=== PATIENT | female | born 1930 | race Two or more races ===

== ENCOUNTER 2017-07-02 17:01 | Inpatient (IN) | payer MEDICARE, OTHER ==
[~2017-07-02] VITALS: Ht 160 cm; Wt 79.4 kg
--- NOTE | 2017-07-02 17:05 | NUR ---
BB GRANDDAUGHTER: COUGH, CONGESTION, SOB, WHEEZING. PLACED ON MONITOR
[2017-07-02] MEDS ORDERED: CEFTRIAXONE 1GM BAG (ER ONLY) 50 ML IV ONE (18:00)
[2017-07-02] MEDS ORDERED: methylPREDNISolone SOD SUCC 125 MG/2ML VIAL IV ONE (18:00)
[2017-07-02] MEDS ORDERED: ALBUTEROL FS 2.5 MG/3 ML VIAL.NEB NEB ONE (18:00)
[2017-07-02] MEDS ORDERED: AZITHROMYCIN 500 MG in IV D5W 250 ML IV ONE ×2 (18:00→18:30)
[2017-07-02] MEDS ORDERED: IPRATROPIUM NEB FS 0.5 MG/2.5 ML AMPUL.NEB NEB ONE (18:00)
[2017-07-02] MEDS ORDERED: ALBUTEROL FS 2.5 MG/3 ML VIAL.NEB ONE (18:08)
[2017-07-02] MEDS ORDERED: IPRATROPIUM NEB FS 0.5 MG/2.5 ML AMPUL.NEB ONE (18:08)
--- NOTE | 2017-07-02 18:12 | NUR ---
EKG IN PROGRESS
[2017-07-02] MEDS ORDERED: methylPREDNISolone SOD SUCC 125 MG/2ML VIAL ONE (18:18)
[2017-07-02 18:20] LABS: BASOPHILS % (AUTO) 0.8 % (0.0-2.0); EOSINOPHILS # (AUTO) 0.2 /CMM (0.0-0.7); EOSINOPHILS % (AUTO) 3.2 % (0.0-6.0); HEMATOCRIT 43 % (33-45); HEMOGLOBIN 14.8 g/dL (11.5-14.8); LYMPHOCYTES # (AUTO) 2.4 /CMM (0.8-4.8); LYMPHOCYTES % (AUTO) 39.4 % (20.0-44.0); MEAN CORPUSCULAR HEMOGLOBIN 29 PG (26.0-33.0); MEAN CORPUSCULAR HGB CONC 34 g/dl (31.0-36.0); MEAN CORPUSCULAR VOLUME 85 fL (82-100); MONOCYTES # (AUTO) 0.7 /CMM (0.1-1.30); NEUTROPHILS # (AUTO) 2.8 /CMM (1.8-8.9); NEUTROPHILS % (AUTO) 44.6 % (43.0-81.0); PLATELET COUNT (AUTO) 207 /CMM (150-450); RED BLOOD CELL COUNT(AUTO) 5.09 MIL/uL (4.0-5.2); WHITE BLOOD COUNT (AUTO) 6.1 K/uL (4.3-11.0)
[2017-07-02 18:31] LABS: CARBON DIOXIDE 28 mmol/L (21-32); CHLORIDE 103 mmol/L (98-107); GLUCOSE 261 mg/dL (74-106); POTASSIUM 4.4 mmol/L (3.5-5.1); SODIUM SERUM 139 mmol/L (136-145); UREA NITROGEN, BLOOD 15 mg/dL (7-18)
[2017-07-02 18:35] LABS: INR 0.86 (0.85-1.15)
[2017-07-02 18:39] LABS: TROPONIN I < 0.017 ng/mL (0.00-0.056)
[2017-07-02 18:44] LABS: ALANINE AMINOTRANSFERASE 22 U/L (12-78); ALBUMIN 3.3 g/dL (3.4-5.0); ALKALINE PHOSPHATASE 90 U/L (46-116); ASPARTATE AMINOTRANSFERASE 17 U/L (15-37); B-TYPE NATRIURETIC PEPTIDE 111 PG/ML (0-125); BILIRUBIN,DIRECT 0.1 mg/dL (0.0-0.2); BILIRUBIN,TOTAL 0.4 mg/dL (0.2-1.0); TOTAL PROTEIN, SERUM 7.2 g/dL (6.4-8.2)
[2017-07-02] MEDS ORDERED: ESOM40CA PO (18:54)
[2017-07-02] MEDS ORDERED: FLUT1DIS5 IH (18:54)
[2017-07-02] MEDS ORDERED: SITA100T PO (18:54)
[2017-07-02] MEDS ORDERED: POTA8TAB8 PO (18:54)
[2017-07-02] MEDS ORDERED: APIX2.5T PO (18:54)
[2017-07-02] MEDS ORDERED: METF500T4 PO (18:54)
[2017-07-02] MEDS ORDERED: VALS80TA2 PO (18:54)
[2017-07-02] MEDS ORDERED: BACL10TA PO (18:54)
--- NOTE | 2017-07-02 18:56 | NUR ---
PARTIAL MED-LIST OBTAINED FROM PATIENT AND FAMILY AT BED SIDE. FAMILY WILL BRING ALL HOME MEDICATION SUPPLY TOMORROW.
--- NOTE | 2017-07-02 19:12 | NUR ---
REPORT RECEIVED FROM ZANDER KO FOR JANAE.
[2017-07-02] MEDS ORDERED: MAGNESIUM HYDROXIDE 30 ML UDC PO PRN (19:30)
[2017-07-02] MEDS ORDERED: Z GUARD REMEDY 2 OZ OINT TP PRN (19:30)
[2017-07-02] MEDS ORDERED: ACETAMINOPHEN 325 MG TABLET PO PRN (19:30)
[2017-07-02] MEDS ORDERED: TEMAZEPAM 15 MG CAPSULE PO PRN (19:30)
[2017-07-02] MEDS ORDERED: ALBUTEROL FS 2.5 MG/3 ML VIAL.NEB NEB PRN (19:30)
[2017-07-02] MEDS ORDERED: IPRATROPIUM NEB FS 0.5 MG/2.5 ML AMPUL.NEB NEB PRN (19:30)
[2017-07-02] MEDS ORDERED: HYDROCODONE/APAP 5/325MG 1 EACH TABLET PO PRN (19:30)
[2017-07-02] MEDS ORDERED: MAG HYDROX/AL HYDROX/SIMETH 30 ML UDC PO PRN (19:30)
[2017-07-02] MEDS ORDERED: ONDANSETRON HCL/PF 4 MG/2 ML VIAL IVP PRN (19:30)
--- NOTE | 2017-07-02 19:51 | NUR ---
DIAMOND ([facility]) PHONE# [phone].
--- NOTE | 2017-07-02 21:26 | NUR ---
REPORT CALLED TO ZANDER HAMMONDS FOR JANAE. PT TBA TELE [phone].
[2017-07-02 21:40] VITALS: BP 155/87
--- NOTE | 2017-07-02 21:40 | NUR ---
HEALTH INFORMATION CODER OPENING NOTES: RECEIVED PT AND IS A/OX3 LATVI[place] SPEAKING/UNDERSTANDING ONLY. PT CAN UNDERSTAND A LITTLE BIT OF [place]. PT APPLIED ON 2LPM VIA NC SHE IS SHOWING SIGNS OF HAVING SOB. PT TO BE PLACED ON TELE BOX. PT HAS IV ON R HAND #20G AND IS PATENT AND INTACT. PT IS CURRENTLY S/L. PT INSTRUCTED TO USE CALL LIGHT FOR ASSISTANCE. CALL LIGHT WITHIN PT'S REACH. BED KEPT IN LOW, LOCKED POSITION, AND SIDE RAILS X 2UP. WILL CONTINUE TO MONITOR PT.
--- NOTE | 2017-07-02 21:55 | NUR ---
PT TRANSPORTED TO [facility] 316-2 VIA STRETCHER ON FILLER MIXER WITH RN PER ACLS PROTOCOL. VSS.
[2017-07-03] VITALS (7 sets, daily range): BP systolic 101–148; BP diastolic 47–80
--- NOTE | 2017-07-03 02:47 | NUR ---
TOOL AND DIE MAKER APPRENTICE NOTES: SPOKE WITH DR. KIMANI Myrick ; INFORMED HIM THAT PT IS DIABETIC AND IS TAKING JANUVIA AND METFORMIN. ALSO GOT ORDER FOR ACCUCHECK AND MILD SLIDING SCALE INSULIN.
[2017-07-03] MEDS ORDERED: DEXTROSE 50%-WATER 50 ML DISP.SYRIN IV PRN (03:00)
[2017-07-03] MEDS: BLOOD SUGAR DIAGNOSTIC 1 EACH STRIP IN SCH ×4 (06:04→21:52)
[2017-07-03] MEDS: INSULIN REGULAR, HUMAN 100 UNIT/ML 3 ML VIAL SQ PRN ×4 (06:36→22:17)
--- NOTE | 2017-07-03 06:42 | NUR ---
TURRET PUNCH PRESS OPERATOR NOTES: BLOOD SUGAR WAS 270. 6 UNITS OF INSULIN WAS ADMINISTERED.SNACK WAS PROVIDED.
--- NOTE | 2017-07-03 07:36 | NUR ---
LIVERY CAR DRIVER CLOSING NOTES: ALL NEEDS WERE ATTENDED AND ANTICIPATED FOR. PT ON 2LPM VIA NC AND TOLERATING WELL. WALKER AT BEDSIDE. BED ALARM ACTIVATED. INSTRUCTED PT TO USE CALL LIGHT FOR ASSISTANCE. PT HAS IV AND IS PATENT AND INTACT. CURRENTLY S/L. NO S/S OF DISTRESS OR SOB. BED KEPT IN LOW, LOCKED POSITION, AND SIDE RAILS X 2UP. PT ON TELE BOX AND READING SHOWS SR WITH OCCASIONAL PVCS. ENDORSED TO AM NURSE FOR JANAE.
[2017-07-03 07:41] LABS: CHOLESTEROL 228 mg/dL (<200); HDL CHOLESTEROL 39 mg/dL (40-60); LDL 156 mg/dL (0-99); TRIGLYCERIDES 118 mg/dL (30-150)
[2017-07-03 07:45] LABS: BASOPHILS % (AUTO) 0.1 % (0.0-2.0); EOSINOPHILS % (AUTO) 0.2 % (0.0-6.0); HEMATOCRIT 43 % (33-45); HEMOGLOBIN 14.6 g/dL (11.5-14.8); LYMPHOCYTES # (AUTO) 1.2 /CMM (0.8-4.8); LYMPHOCYTES % (AUTO) 17.2 % (20.0-44.0); MEAN CORPUSCULAR HEMOGLOBIN 30 PG (26.0-33.0); MEAN CORPUSCULAR HGB CONC 34 g/dl (31.0-36.0); MEAN CORPUSCULAR VOLUME 87 fL (82-100); MONOCYTES # (AUTO) 0.1 /CMM (0.1-1.30); MONOCYTES % (AUTO) 1.3 % (2.0-12.0); NEUTROPHILS # (AUTO) 5.9 /CMM (1.8-8.9); NEUTROPHILS % (AUTO) 81.2 % (43.0-81.0); PLATELET COUNT (AUTO) 190 /CMM (150-450); RDW COEFFICIENT OF VARIATION 12.9 (11.5-15.0); RED BLOOD CELL COUNT(AUTO) 4.94 MIL/uL (4.0-5.2); WHITE BLOOD COUNT (AUTO) 7.2 K/uL (4.3-11.0)
[2017-07-03 07:53] LABS: CALCIUM, SERUM 9.2 mg/dL (8.5-10.1); CARBON DIOXIDE 24 mmol/L (21-32); CHLORIDE 103 mmol/L (98-107); CREATININE 0.9 mg/dL (0.6-1.3); GLUCOSE 308 mg/dL (74-106); MAGNESIUM 1.9 mg/dL (1.8-2.4); PHOSPHORUS 5.4 mg/dL (2.5-4.9); POTASSIUM 4.1 mmol/L (3.5-5.1); SODIUM SERUM 139 mmol/L (136-145); UREA NITROGEN, BLOOD 18 mg/dL (7-18)
[2017-07-03] MEDS: PANTOPRAZOLE 40 MG TABLET.DR PO SCH (08:09)
[2017-07-03] MEDS: BACLOFEN (10 MG) 10 MG TABLET PO SCH ×2 (08:09→17:15)
[2017-07-03] MEDS: LINAGLIPTIN 5 MG TABLET PO SCH (08:09)
[2017-07-03] MEDS: METFORMIN 500 MG TABLET PO SCH ×2 (08:09→17:15)
[2017-07-03] MEDS: methylPREDNISolone SOD SUCC 40 MG/ML VIAL IV SCH ×3 (08:10→17:16)
[2017-07-03] MEDS: APIXABAN 2.5 MG TABLET PO SCH ×2 (08:42→17:16)
[2017-07-03] MEDS: FLUTICASONE/VILANTEROL 1 EACH BLST.W.DEV IH SCH (08:42)
[2017-07-03] MEDS ORDERED: VALSARTAN 80 MG TABLET PO SCH (09:00)
[2017-07-03] MEDS ORDERED: SITAGLIPTIN PHOSPHATE 50 MG TABLET PO SCH (09:00)
--- NOTE | 2017-07-03 10:30 | NUR ---
MS RN NOTES SEEN AND EVALUATED BY PRINCESS CASTANO WITH NEW ORDERS MADE. NOTED AND CARRIED OUT.
[2017-07-03] MEDS: HYDROCHLOROTHIAZIDE 25 MG TABLET PO SCH (11:25)
[2017-07-03] MEDS: VALSARTAN 80 MG TABLET PO SCH (11:25)
[2017-07-03] MEDS: IPRATROPIUM NEB FS 0.5 MG/2.5 ML AMPUL.NEB NEB SCH ×2 (13:44→19:15)
[2017-07-03] MEDS: ALBUTEROL FS 2.5 MG/3 ML VIAL.NEB NEB SCH ×2 (13:44→19:15)
[2017-07-03] MEDS: LACTOBACILLUS RHAMNOSUS GG 1 EACH CAP.SPRINK PO SCH (17:15)
[2017-07-03] MEDS: AZITHROMYCIN 500 MG in IV D5W 250 ML IV SCH (17:24)
--- NOTE | 2017-07-03 18:30 | NUR ---
MS RN CLOSING NOTES PATIENT IN BED WATCHING TV, ALERT ORIENTED X4.VERBALLY RESPONSIVE. NO ACUTE DISTRESS NOTED. BREATHING UNLABORED. NO SOB NOTED. IV ACCESS PATENT AND INTACT, NO REDNESS OR SWELLING NOTED. DUE MEDICATIONS GIVEN. NO ASE NOTED. NEEDS ATTENDED AND ANTICIPATED. HOB ELEVATED. SAFETY MEASURES IS PLACE. CALL LIGHT WITHIN REACH. WILL CONTINUE TO MONITOR ACCORDINGLY. WILL ENDORSE TO POLICE PATROL OFFICER FOR CONTINUITY OF CARE.
[2017-07-03] MEDS: CEFTRIAXONE 1 G in IV D5W 50 ML IV SCH (18:40)
--- NOTE | 2017-07-03 19:50 | NUR ---
RN OPENING NOTES PATENT IS IN BED, ALERT AND ORIENTED X3, [place]UG[place]E SPEAKING. VS STABLE. NO C/O PAIN OR DISCOMFORT AT THIS TIME. RESPIRATIONS EVEN AND UNLABORED. NO SOB NOTED. IV ACCESS ON RIGHT HAND #20 SL PATENT AND INTACT, NO REDNESS OR INFILTRATION NOTED. BED IN LOW AND LOCKED POSITION, SIDE RAILS X2. CALL LIGHT WITHIN EASY REACH. WILL CONTINUE TO MONITOR AND ASSESS DURING THE SHIFT.
--- NOTE | 2017-07-03 22:29 | NUR ---
RN NOTES BS 563. PATIENT IS STABLE. CALLED DR HARMAN AND OBTAINED ORDER OF INSULIN 20 UNITS. WILL CONTINUE TO MONITOR.
[2017-07-04] MEDS: IPRATROPIUM NEB FS 0.5 MG/2.5 ML AMPUL.NEB NEB SCH ×4 (01:11→19:44)
[2017-07-04] MEDS: ALBUTEROL FS 2.5 MG/3 ML VIAL.NEB NEB SCH ×4 (01:11→19:44)
[2017-07-04] MEDS: BLOOD SUGAR DIAGNOSTIC 1 EACH STRIP IN SCH ×5 (06:33→21:50)
[2017-07-04] MEDS: INSULIN REGULAR, HUMAN 100 UNIT/ML 3 ML VIAL SQ PRN ×4 (06:35→21:54)
--- NOTE | 2017-07-04 06:55 | NUR ---
RN CLOSING NOTES PATENT IS SLEEPING IN BED, EASY TO AROUSE, ALERT AND ORIENTED X3, [place]RA[place] SPEAKING. VS STABLE. NO PAIN OR DISCOMFORT NOTED AT THIS TIME. RESPIRATIONS EVEN AND UNLABORED. NO SOB NOTED. IV ACCESS ON RIGHT HAND #20 SL PATENT AND INTACT, NO REDNESS OR INFILTRATION NOTED. ALL NEEDS ARE MET AND MEDICATIONS GIVEN PER MD ORDER. BED IN LOW AND LOCKED POSITION, SIDE RAILS X2. CALL LIGHT WITHIN EASY REACH. WILL ENDORSE TO RN DAY SHIFT FOR JANAE.
[2017-07-04 08:00] VITALS: BP 139/73
--- NOTE | 2017-07-04 08:20 | NUR ---
MS/RN OPENING NOTE PATIENT IN BED AWAKE. ALERT AND ORIENTED X4. ON OXYGEN AT 2L/MIN VIA NC. DENIES SOB. RESPIRATION REGULAR AND UNLABORED. DENIES PAIN. IN NO APPARENT DISTRESS. RIGHT HAND G 20 PATENT AND SALINE LOCKED. BED LOW AND LOCKED. SIDE RAILS UP X2. VERBAL CUES PROVIDED TO KEEP SAFETY AWARENESS HIGH. CALL LIGHT WITHIN REACH. WILL CONTINUE TO MONITOR.
[2017-07-04] MEDS: methylPREDNISolone SOD SUCC 40 MG/ML VIAL IV SCH ×3 (09:08→17:00)
[2017-07-04] MEDS: POTASSIUM CHLORIDE 10 MEQ TABLET.SA PO SCH (09:08)
[2017-07-04] MEDS: LACTOBACILLUS RHAMNOSUS GG 1 EACH CAP.SPRINK PO SCH ×2 (09:09→17:00)
[2017-07-04] MEDS: PANTOPRAZOLE 40 MG TABLET.DR PO SCH (09:09)
[2017-07-04] MEDS: HYDROCHLOROTHIAZIDE 25 MG TABLET PO SCH (09:09)
[2017-07-04] MEDS: BACLOFEN (10 MG) 10 MG TABLET PO SCH ×2 (09:09→17:00)
[2017-07-04] MEDS: LINAGLIPTIN 5 MG TABLET PO SCH (09:09)
[2017-07-04] MEDS: APIXABAN 2.5 MG TABLET PO SCH ×2 (09:10→17:00)
[2017-07-04] MEDS: METFORMIN 500 MG TABLET PO SCH ×2 (09:10→17:00)
[2017-07-04] MEDS: FLUTICASONE/VILANTEROL 1 EACH BLST.W.DEV IH SCH (09:10)
[2017-07-04] MEDS: VALSARTAN 80 MG TABLET PO SCH (09:10)
[2017-07-04] MEDS ORDERED: DEXTROSE 50%-WATER 50 ML DISP.SYRIN IV PRN (11:30)
[2017-07-04 15:46] VITALS: BP 125/48
--- NOTE | 2017-07-04 17:10 | NUR ---
MS/RN NOTE BLOOD SUGAR 447. 10 UNITS REGULAR INSULIN GIVEN PER ORDER AND PAGED IRMA Gasca
[2017-07-04] MEDS: CEFTRIAXONE 1 G in IV D5W 50 ML IV SCH (17:33)
[2017-07-04] MEDS: AZITHROMYCIN 500 MG in IV D5W 250 ML IV SCH ×2 (18:00→18:52)
--- NOTE | 2017-07-04 18:15 | NUR ---
MS/RN NOTE BLOOD SUGAR 418. IRMA SEWER HAND REPLIED AND PER SEWER HAND GIVEN THE ORDERED 4 UNITS OF HUMALOG AND NO FURTHER ORDERS. HUMALOG 4 UNITS GIVEN. THE PATIENT ALERT AND ORIENTED X4. RESPIRATION REGULAR AND UNLABORED. DENIES SOB, PAIN OR ANY OTHER DISCOMFORT. THE PATIENT IN STABLE CONDITION.
[2017-07-04] MEDS: INSULIN LISPRO/ASPART 100 UNIT/ML CARTRIDGE SQ SCH (18:52)
--- NOTE | 2017-07-04 19:40 | NUR ---
MS/RN CLOSING NOTE PATIENT ALERT AND ORIENTED X4. RESPIRATION REGULAR AND UNLABORED. DENIES SOB, PAIN AT THIS TIME. IN NO APPARENT DISTRESS. PATIENT IN STABLE CONDITION. BED LOW AND LOCKED. SIDE RAILS UP X2. CALL LIGHT WITHIN REACH. DIRECTOR MEDICAID IS ENDORSE REGARDING BLOOD SUGAR. DIRECTOR MEDICAID IS ENDORSED FOR JANAE.
--- NOTE | 2017-07-04 19:40 | NUR ---
MS RN OPENING NOTES RECEIVED PT IN BED ALERT, AWAKE, VERBALLY RESPONSIVE, ON O2 VIA N/C AT 2L/MIN, RESPIRATIONS EVEN, UNLABORED, NO APPARENT DISTRESS NOTED. CALL LIGHT WITHIN REACH. IV SITE RT HAND INTACT, PATENT. DENIES ANY PAIN OR DISCOMFORT AT THIS TIME. ATTENDED ALL NEEDS. WILL CONTINUE TO MONITOR ACCORDINGLY.
[2017-07-04 20:00] VITALS: BP 134/65
[2017-07-04 22:00] VITALS: BP 134/65
[2017-07-04] MEDS ORDERED: INSULIN GLARGINE, 100 UNIT/ML CARTRIDGE SQ SCH (22:00)
[2017-07-05] MEDS: IPRATROPIUM NEB FS 0.5 MG/2.5 ML AMPUL.NEB NEB SCH ×2 (01:34→08:05)
[2017-07-05] MEDS: ALBUTEROL FS 2.5 MG/3 ML VIAL.NEB NEB SCH ×2 (01:34→08:05)
[2017-07-05] MEDS: BLOOD SUGAR DIAGNOSTIC 1 EACH STRIP IN SCH (06:04)
[2017-07-05] MEDS: INSULIN REGULAR, HUMAN 100 UNIT/ML 3 ML VIAL SQ PRN (06:06)
--- NOTE | 2017-07-05 06:48 | NUR ---
MS RN CLOSING NOTES PT IN BED RESTING COMFORTABLY, ON O2 VIA N/C AT 2L/MIN, RESPIRATIONS EVEN, UNLABORED, NO APPARENT DISTRESS NOTED. INSERTED NEW IV ACCESS AT LT WRIST, INTACT, PATENT. DENIES ANY PAIN OR DISCOMFORT AT THIS TIME, BLOOD GLUCOSE CHECKED 385 ADMINISTERED 10 UNITS REGULAR INSULIN PER SLIDING SCALE. CALL LIGHT WITHIN REACH. BED LOCKED IN LOWEST POSITION. KEPT CLEAN AND COMFORTABLE. ATTENDED ALL NEEDS. WILL CONTINUE TO MONITOR ACCORDINGLY.
--- NOTE | 2017-07-05 07:36 | NUR ---
MS/RN OPENING NOTE PATIENT IN BED AWAKE. ALERT AND ORIENTED X4. DENIES SOB. RESPIRATION REGULAR AND UNLABORED. DENIES PAIN AT THIS TIME. IN NO APPARENT DISTRESS. PATIENT IN NO APPARENT DISTRESS. LEFT WRIST IV PATENT. VERBAL CUES PROVIDED TO KEEP SAFETY AWARENESS HIGH. BED LOW AND LOCKED. SIDE RAILS UP X2. CALL LIGHT WITHIN REACH. WILL CONTINUE TO MONITOR.
[2017-07-05 08:00] VITALS: BP 134/77
[2017-07-05] MEDS: POTASSIUM CHLORIDE 10 MEQ TABLET.SA PO SCH (08:15)
[2017-07-05] MEDS: METFORMIN 500 MG TABLET PO SCH (08:15)
[2017-07-05] MEDS: BACLOFEN (10 MG) 10 MG TABLET PO SCH (08:15)
[2017-07-05] MEDS: LINAGLIPTIN 5 MG TABLET PO SCH (08:15)
[2017-07-05] MEDS: LACTOBACILLUS RHAMNOSUS GG 1 EACH CAP.SPRINK PO SCH (08:15)
[2017-07-05] MEDS: VALSARTAN 80 MG TABLET PO SCH (08:15)
[2017-07-05 08:16] VITALS: BP 134/77
[2017-07-05] MEDS: methylPREDNISolone SOD SUCC 40 MG/ML VIAL IV SCH (08:16)
[2017-07-05] MEDS: HYDROCHLOROTHIAZIDE 25 MG TABLET PO SCH (08:16)
[2017-07-05] MEDS: PANTOPRAZOLE 40 MG TABLET.DR PO SCH (08:16)
[2017-07-05] MEDS: APIXABAN 2.5 MG TABLET PO SCH (08:18)
[2017-07-05] MEDS: FLUTICASONE/VILANTEROL 1 EACH BLST.W.DEV IH SCH (08:18)
[2017-07-05] MEDS: INSULIN LISPRO/ASPART 100 UNIT/ML CARTRIDGE SQ SCH (09:04)
--- NOTE | 2017-07-05 12:10 | NUR ---
MS/RN CLOSING NOTE PATIENT ALERT AND ORIENTED X4. RESPIRATION REGULAR AND UNLABORED. DENIES SOB, DENIES PAIN AT THIS TIME. THE PATIENT IN NO APPARENT DISTRESS. DISCHARGE INSTRUCTIONS GIVEN AND THE PATIENT VERBALIZED UNDERSTANDING. PATING IS PICKED UP BY THE SON IN LAW AND GRANDDAUGHTER. DARKROOM WORKER ASSISTED THE PATIENT TO THE CAR. PATIENT LEFT THE HOSPITAL IN STABLE CONDITION.
[2017-07-05] MEDS ORDERED: AZITHROMYCIN 250 MG TABLET PO SCH (18:00)
== END 2017-07-05 12:31 | disposition home or self-care (01) | DRG 202 ==
LOC: ER 17:05 → TELE 21:24 → MED 07-03 10:03
PROVIDERS: ADMIT Nurse Practitioner Acute Care; ATTEND Nurse Practitioner Acute Care
DX: J45.901 Unspecified asthma with (acute) exacerbation (principal); E44.1 Mild protein-calorie malnutrition; E11.65 Type 2 diabetes mellitus with hyperglycemia; E88.09 Other disorders of plasma-protein metabolism, not elsewhere classified; J44.9 Chronic obstructive pulmonary disease, unspecified; K21.9 Gastro-esophageal reflux disease without esophagitis; I10 Essential (primary) hypertension; E66.9 Obesity, unspecified; Z79.01 Long term (current) use of anticoagulants; Z90.710 Acquired absence of both cervix and uterus; Z86.718 Personal history of other venous thrombosis and embolism; Z68.31 Body mass index [BMI] 31.0-31.9, adult; Z79.84 Long term (current) use of oral hypoglycemic drugs; Z71.3 Dietary counseling and surveillance
CPT/HCPCS: 36415; 71045-TC; 80048-TC; 80061-TC; 80076-TC; 82962-TC; 83605-TC; 83735-TC; 83880; 84100-TC; 84443-TC; 84484-TC; 85025-TC; 85730-TC; 87040-TC; 87081-TC; 87400; 94799-TC; A4606; A6403; J0456; J0696; J1815; J2920; J7050; J7060; Z7610

== ENCOUNTER 2017-09-21 19:59 | Emergency (ER) | payer MEDICARE, OTHER ==
[~2017-09-21] VITALS: Ht 162.6 cm; Wt 81.6 kg
[~2017-09-21 19:59] MED LIST: APIX2.5T PO; BACL10TA PO; ESOM40CA PO; FLUT1DIS5 IH; METF-440 PO; POTA8TAB8 PO; SITA100T PO; VALS80TA2 PO
--- NOTE | 2017-09-21 20:15 | NUR ---
PT BIB DAUGHTER, PER DAUGHTER PT "WAS WALKING DOWN THE STAIRS, FELT DIZZY LIKE ROOM IS SPINNING AND FELL" PT AOX3 [place]IZ[place] SPEAKING. RR EVEN AND UNLABORED. NO SOB NOTED. NAD NOTED. NO NVD AT THIS TIME. PT GOWNED AND PLACED ON MONITOR. PT WAITING FOR MD MERRITT. PT NOTED WITH ABRASIONS OF LEFTSIDE OF FACE. PT STATES PAIN ON LEFT SIDE PAIN
--- NOTE | 2017-09-21 20:30 | NUR ---
PT TO CT VIA MCKENNA
--- NOTE | 2017-09-21 20:40 | NUR ---
PT RETURNED FROM CT.
[2017-09-21 21:16] VITALS: BP 148/72
--- NOTE | 2017-09-21 21:35 | NUR ---
DR. BOGGS AT BEDSIDE SPEAKING TO PT AND FAMILY REGARDING RESULTS.
== END 2017-09-21 21:45 | disposition home or self-care (01) ==
LOC: ER 20:00
DX: S00.83XA Contusion of other part of head, initial encounter (principal); S70.02XA Contusion of left hip, initial encounter; E11.9 Type 2 diabetes mellitus without complications; I10 Essential (primary) hypertension; J45.909 Unspecified asthma, uncomplicated; K21.9 Gastro-esophageal reflux disease without esophagitis; Z79.01 Long term (current) use of anticoagulants; Z88.5 Allergy status to narcotic agent; Z88.6 Allergy status to analgesic agent; Z90.710 Acquired absence of both cervix and uterus; W10.9XXA Fall (on) (from) unspecified stairs and steps, initial encounter; Y93.01 Activity, walking, marching and hiking; Y92.099 Unspecified place in other non-institutional residence as the place of occurrence of the external cause; Y99.8 Other external cause status
CPT/HCPCS: 70450-TC; 72170-TC; 73552; A4606; Z7610

== ENCOUNTER 2017-09-24 10:19 | Emergency (ER) | payer MEDICARE, OTHER ==
[~2017-09-24] VITALS: Ht 154.9 cm; Wt 82.6 kg
[2017-09-24 10:28] VITALS: BP 144/73
== END 2017-09-24 11:07 | disposition home or self-care (01) ==
LOC: ER 10:20
DX: S00.12XA Contusion of left eyelid and periocular area, initial encounter (principal); E11.9 Type 2 diabetes mellitus without complications; I10 Essential (primary) hypertension; J45.909 Unspecified asthma, uncomplicated; K21.9 Gastro-esophageal reflux disease without esophagitis; Z79.01 Long term (current) use of anticoagulants; Z90.710 Acquired absence of both cervix and uterus; Z88.5 Allergy status to narcotic agent; W18.30XA Fall on same level, unspecified, initial encounter; Y93.89 Activity, other specified; Y92.89 Other specified places as the place of occurrence of the external cause; Y99.8 Other external cause status
CPT/HCPCS: A4606; Z7610

== ENCOUNTER 2018-01-03 00:35 | Emergency (ER) | payer MEDICARE, OTHER ==
[~2018-01-03] VITALS: Ht 157.5 cm; Wt 81.6 kg
[~2018-01-03 00:35] MED LIST changes: -METF-440 PO; +METF500T6 PO
--- NOTE | 2018-01-03 01:20 | NUR ---
PT TO ER BED 2. BIBSELF FROM HOME C/C LEFT LOWER FOOT PAIN X1 WEEK. HX OF DVT. PT PLACED IN GOWN AND ON PROSTHETIC AIDES TEACHER. VSS/RESP EVEN UNLABORED/NAD NOTED/SKIN WARM AND DRY/AFEBRILE/DENIES N-V-D/AOX4. AWAITNG MD MERRITT.
--- NOTE | 2018-01-03 01:26 | NUR ---
AT BEDSIDE FOR EVAL.
[2018-01-03] MEDS ORDERED: ACETAMINOPHEN 325 MG TABLET PO ONE (01:30)
--- NOTE | 2018-01-03 01:30 | NUR ---
TECH FOR VENOUS DUPLEX PAGED.
--- NOTE | 2018-01-03 01:35 | NUR ---
LAB AT BEDSIDE FOR DRAW.
[2018-01-03] MEDS ORDERED: ACETAMINOPHEN 325 MG TABLET ONE (01:38)
--- NOTE | 2018-01-03 01:49 | NUR ---
XRAY AT BEDSIDE.
[2018-01-03 01:51] LABS: BASOPHILS # (AUTO) 0.1 /CMM (0.0-0.2); EOSINOPHILS % (AUTO) 0.9 % (0.0-6.0); HEMATOCRIT 41 % (33-45); HEMOGLOBIN 13.5 g/dL (11.5-14.8); LYMPHOCYTES # (AUTO) 2.8 /CMM (0.8-4.8); MEAN CORPUSCULAR HEMOGLOBIN 29 PG (26.0-33.0); MEAN CORPUSCULAR HGB CONC 33 g/dl (31.0-36.0); MEAN CORPUSCULAR VOLUME 89 fL (82-100); MONOCYTES # (AUTO) 0.4 /CMM (0.1-1.30); MONOCYTES % (AUTO) 6.1 % (2.0-12.0); NEUTROPHILS # (AUTO) 3.2 /CMM (1.8-8.9); PLATELET COUNT (AUTO) 252 /CMM (150-450); RED BLOOD CELL COUNT(AUTO) 4.65 MIL/uL (4.0-5.2); WHITE BLOOD COUNT (AUTO) 6.5 K/uL (4.3-11.0)
[2018-01-03 02:01] LABS: CALCIUM, SERUM 9.1 mg/dL (8.5-10.1); CARBON DIOXIDE 27 mmol/L (21-32); CHLORIDE 104 mmol/L (98-107); CREATININE 0.8 mg/dL (0.6-1.3); GLUCOSE 149 mg/dL (74-106); POTASSIUM 4.3 mmol/L (3.5-5.1); SODIUM SERUM 139 mmol/L (136-145); UREA NITROGEN, BLOOD 14 mg/dL (7-18)
[2018-01-03 02:04] LABS: INR 0.9 (0.87-1.13)
[2018-01-03 02:09] LABS: TROPONIN I < 0.017 ng/mL (0.00-0.056)
--- NOTE | 2018-01-03 03:00 | NUR ---
TECH AT BEDSIDE FOR VENOUS DUPLEX.
--- NOTE | 2018-01-03 04:13 | NUR ---
Patient discharged to home in stable condition. Written and verbal after care instructions given. Patient verbalizes understanding of instruction. Patient ambulatory with a steady gait.
[2018-01-03 04:18] VITALS: BP 148/77
== END 2018-01-03 04:18 | disposition home or self-care (01) ==
LOC: ER 00:38
DX: I82.4Z3 Acute embolism and thrombosis of unspecified deep veins of distal lower extremity, bilateral (principal); I82.413 Acute embolism and thrombosis of femoral vein, bilateral; I83.93 Asymptomatic varicose veins of bilateral lower extremities; J45.909 Unspecified asthma, uncomplicated; K21.9 Gastro-esophageal reflux disease without esophagitis; E11.9 Type 2 diabetes mellitus without complications; Z90.710 Acquired absence of both cervix and uterus; Z88.6 Allergy status to analgesic agent
CPT/HCPCS: 36415; 71045; 80048; 84484; 85025; 85730; 93005; 93970; 99285; A4606; Z7610